=== PATIENT | male | born 1975 | race Two or more races ===

== ENCOUNTER 2021-08-11 11:18 | Emergency (ER) | payer OTHER ==
[~2021-08-11] VITALS: Ht 172.7 cm; Wt 87.6 kg
[2021-08-11 11:20] VITALS: BP 161/94
[2021-08-11 12:08] LABS: BACTERIA,URINE 0 /HPF (0-FEW); RBC,URINE OCC /HPF (0-2); WBC,URINE 0 /HPF (0-4)
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
== END 2021-08-11 13:17 | disposition home or self-care (01) ==
LOC: ER 11:18
DX: M25.561 Pain in right knee (principal); M54.50 Low back pain, unspecified; M25.512 Pain in left shoulder; R51.9 Headache, unspecified; M54.2 Cervicalgia; K40.90 Unilateral inguinal hernia, without obstruction or gangrene, not specified as recurrent; G89.11 Acute pain due to trauma; V49.49XA Driver injured in collision with other motor vehicles in traffic accident, initial encounter; Y93.89 Activity, other specified; Y92.488 Other paved roadways as the place of occurrence of the external cause; Y99.8 Other external cause status
CPT/HCPCS: 70450; 72125; 73562; 74176; 81001; 99285-25